=== PATIENT | female | born 1990 | race African-American/Black ===

== ENCOUNTER 2017-04-27 14:55 | Emergency (ER) | payer SELFPAY ==
[~2017-04-27 14:55] MED LIST: ALPR0.25 PO
--- NOTE | 2017-04-27 15:24 | ED.ADGEN ---
Past History Past Medical History: Anxiety, Bipolar, Bronchitis Additional Past Medical Histor: adjustment disorder Past Surgical History: No Surgical History Smoking: Cigarettes, Quit Less Than 1 Year Alcohol Use: None Drug Use: None Adult General Chief Complaint Chief Complaint Anxiety HPI HPI Patient is a 26 year old female who presents with anxiety that started today patient's shaking and stuttering this is happening many times in the past she is no longer taking any of her psychiatric medications. She is a very poor follow-up from a mental health standpoint. Denies any suicidal or homicidal ideation denies any auditory or visual hallucinations. No obvious triggers that exacerbated this according to the patient but she reports that she was looking at her medical bills from the previous visit to the emergency department back in October 2016. So as as response she called 911 to the ER.. Patient reports that she's been diagnosed with bipolar, anxiety/ panic disorder and adjustment disorder but she "disagrees with those diagnoses". Review of Systems Review of Systems Constitutional: Denies fever or chills [] Eyes: Denies change in visual acuity, redness, or eye pain [] HENT: Denies nasal congestion or sore throat [] Respiratory: Denies cough or shortness of breath [] Cardiovascular: No additional information not addressed in HPI [] GI: Denies abdominal pain, nausea, vomiting, bloody stools or diarrhea [] : Denies dysuria or hematuria [] Musculoskeletal: Denies back pain or joint pain [] Integument: Denies rash or skin lesions [] Neurologic: Denies headache, focal weakness or sensory changes [] Endocrine: Denies polyuria or polydipsia [] Current Medications Current Medications Current Medications Medications (Trade) Dose Ordered Sig/Radha Start Time Stop Time Status Last Admin Dose Admin Lorazepam (Ativan) 1 mg 1X ONCE 04/27/17 15:30 04/27/17 15:31 DC 04/27/17 15:21 1 MG Allergies Allergies Allergies Coded Allergies Type Severity Reaction Last Updated Verified amoxicillin Allergy Severe sob 07/30/16 Yes Physical Exam Physical Exam Constitutional: Well developed, well nourished, no acute distress, non-toxic appearance. [] HENT: Normocephalic, atraumatic, bilateral external ears normal, oropharynx moist, no oral exudates, nose normal. [] Eyes: PERRLA, EOMI, conjunctiva normal, no discharge. [] Neck: Normal range of motion, no tenderness, supple, no stridor. [] Cardiovascular:Heart rate regular rhythm, no murmur [] Lungs & Thorax: Bilateral breath sounds clear to auscultation [] Abdomen: Bowel sounds normal, soft, no tenderness, no masses, no pulsatile masses. [] Skin: Warm, dry, no erythema, no rash. [] Back: No tenderness, no CVA tenderness. [] Extremities: No tenderness, no cyanosis, no clubbing, ROM intact, no edema. [] Neurologic: Alert and oriented X 3, normal motor function, normal sensory function, no focal deficits noted. [] Psychologic: Affect flat, judgement normal, mood anxious. Denies SI or HI or hallucinations [] EKG EKG [] Radiology/Procedures Radiology/Procedures [] Course & Med Decision Making Course & Med Decision Making Pertinent Labs and Imaging studies reviewed. (See chart for details) Patient responded well to IV Ativan and recommended outpatient follow-up. [] Final Impression Final Impression Anxiety and panic disorder [] Problems: Dragon Disclaimer Dragon Disclaimer This electronic medical record was generated, in whole or in part, using a voice recognition dictation system. IVETT GARCIA MD Apr 27, 2017 15:24
[2017-04-27] MEDS ORDERED: LORazepam 2 MG/ML VIAL IV ONE (15:30)
[2017-04-27 16:40] VITALS: BP 143/84
== END 2017-04-27 16:40 | disposition home or self-care (01) ==
LOC: ER 14:55
DX: F41.0 Panic disorder [episodic paroxysmal anxiety] (principal); F31.9 Bipolar disorder, unspecified; F17.210 Nicotine dependence, cigarettes, uncomplicated; Z88.1 Allergy status to other antibiotic agents
CPT/HCPCS: 96374; 99284; J2060

== ENCOUNTER → 2018-01-27 | Outpatient (CLI) | payer OTHER ==
--- NOTE | 2018-01-27 16:27 | RAD ---
Obstetrical ultrasound, 01/27/2018: History: Uterine size/date discrepancy There is a single intrauterine fetus in a cephalic orientation. The biparietal diameter measures 8.3 cm compatible with a gestational age of 33-34 weeks. This corresponds well with the other measurements yielding an average gestational age of 33 weeks and 4 days and a sonographic EDC of 03/13/2018. No previous studies are available at this time for correlative purposes. Normal activity and heart motion were seen. A four-chamber heart is evident with a heart rate of 132 bpm. The head to abdominal circumference ratio is within normal limits. The weight was estimated at 4 pounds and 13 ounces +/- 11 ounces. Fluid is evident in the bladder and stomach. The kidneys are unremarkable. Due to the position there was limited visualization of the spine. No specific abnormality is detected. The amniotic fluid volume appears to be within normal limits with the ROSI calculated at 16. The placenta lies laterally on the right with extension anteriorly and posteriorly. It is considered to be grade 2. No placenta previa is seen. The cervical length is 4.4 cm. IMPRESSION: Single viable intrauterine fetus of 33-34 weeks gestational age as described above.
== END | disposition home or self-care (01) ==
LOC: US 13:17
PROVIDERS: ATTEND Obstetrics & Gynecology
DX: Z34.93 Encounter for supervision of normal pregnancy, unspecified, third trimester (principal); Z3A.34 34 weeks gestation of pregnancy
CPT/HCPCS: 76805

== ENCOUNTER 2018-03-21 11:00 | Emergency (ER) | payer OTHER ==
[~2018-03-21] VITALS: Ht 167.6 cm; Wt 123.0 kg
[2018-03-21] MEDS ORDERED: IV NORMAL SALINE 1,000ML 1,000 ML IV SCH (11:25)
[2018-03-21] MEDS ORDERED: 0.9 % SODIUM CHLORIDE 10 ML DISP.SYRIN. IV PRN (11:30)
[2018-03-21 11:38] LABS: BASO % 0 % (0-3); EOS % 0 % (0-3); HEMATOCRIT 32.2 % (36.0-47.0); LYMPH # 1.2 x10^3/uL (1.0-4.8); LYMPH % 11 % (24-48); MEAN CORPUSCULAR HEMOGLOBIN 31 pg (25-35); MEAN CORPUSCULAR HGB CONC 34 g/dL (31-37); MEAN CORPUSCULAR VOLUME 90 fL (79-100); MONO # 0.3 x10^3/uL (0.0-1.1); MONO % 3 % (0-9); NEUT # 9.1 x10^3uL (1.8-7.7); NEUT % 85 % (31-73); PLATELET COUNT 318 x10^3/uL (140-400); RED BLOOD COUNT 3.59 x10^6/uL (3.50-5.40); RED CELL DISTRIBUTION WIDTH 13.8 % (11.5-14.5); WHITE BLOOD COUNT 10.7 x10^3/uL (4.0-11.0)
[2018-03-21] MEDS ORDERED: ONDANSETRON PF 4 MG/2 ML VIAL. IV ONE (11:45)
[2018-03-21] MEDS ORDERED: KETOROLAC 30 MG/ML VIAL. IV ONE (11:45)
[2018-03-21 11:48] LABS: BILIRUBIN,URINE NEG (NEG); CLARITY,URINE HAZY; COLOR,URINE YELLOW; GLUCOSE,URINE NEG (NEG); NITRITE,URINE NEG (NEG); UROBILINOGEN,URINE 0.2 mg/dL (0.2 mg/dL); WBC,URINE OCC /HPF (0-4)
[2018-03-21 11:49] LABS: AMORPHOUS SEDIMENT,UR PRESENT /HPF; BACTERIA,URINE FEW /HPF (0-FEW); SQUAMOUS EPITHELIAL CELL,UR FEW /LPF
[2018-03-21 11:54] LABS: ALBUMIN 3.3 g/dL (3.4-5.0); ALBUMIN/GLOBULIN RATIO 0.8 (1.0-1.7); CALCIUM 9.2 mg/dL (8.5-10.1); CREATININE 0.9 mg/dL (0.6-1.0); GFR 89.6; POTASSIUM 3.5 mmol/L (3.5-5.1); TOTAL BILIRUBIN 0.2 mg/dL (0.2-1.0); TOTAL PROTEIN 7.5 g/dL (6.4-8.2)
[2018-03-21 11:54] LABS: AMPHETAMINE/METHAMPHETAMINE NEG (NEG); BARBITURATES NEG (NEG); BENZODIAZEPINES POS (NEG); CANNABINOIDS POS (NEG); COCAINE NEG (NEG); METHADONE NEG (NEG); OPIATES POS (NEG); PHENCYCLIDINE NEG (NEG)
[2018-03-21] MEDS ORDERED: IOHEXOL 300 MG/ML 75 ML VIAL. IV ONE (12:10)
--- NOTE | 2018-03-21 12:18 | RAD ---
PQRS Compliance Statement: One or more of the following individualized dose reduction techniques were utilized for this examination: 1. Automated exposure control 2. Adjustment of the mA and/or kV according to patient size 3. Use of iterative reconstruction technique CT abdomen/pelvis with contrast 03/21/2018 11:46 AM INDICATION: Abdominal pain. History of and tubal ligation 03/09/2018. History of prior hernia repair. COMPARISON: None available TECHNIQUE: Multiple axial CT images of the abdomen and pelvis were obtained after the intravenous administration of 75 mL Omnipaque 300. Coronal and sagittal reformats are provided. FINDINGS: Visualized portions of the lung bases are clear. Heart size is within normal limits. No suspicious hepatic masses are identified. Liver is homogeneous in enhancement. Spleen, bilateral adrenal glands, and pancreas are normal in appearance. There is gallbladder wall thickening and suspected wall edema. The abdominal aorta is normal in course and caliber. There are no pathologically enlarged lymph nodes in the abdomen and pelvis. There is no abdominal free fluid. There is no free intraperitoneal air. Cystic density is identified in the left rectus muscle measuring 3.8 x 2.3 cm, suggestive of a postoperative seroma. Postgravid uterus is noted with trace free fluid in the pelvis. Fluid is noted within the endometrium. Urinary bladder is within normal limits given degree of distention. Postoperative changes from ventral abdominal hernia repair are noted. No definite recurrent hernia is identified. The kidneys enhance symmetrically. There is no suspicious renal mass. There is no hydronephrosis. There are no suspected calculi within the kidneys, ureters or urinary bladder. Small and large bowel are normal in caliber. There is no evidence for bowel obstruction. There are no pericolonic inflammatory changes. Appendix is not definitively visualized and likely surgically absent. Suture material is noted along the cecum. IMPRESSION: 1. Status post with tubal ligation with fluid noted within the endometrium. If there is persistent clinical concern, further evaluation with pelvic ultrasound may be of benefit. 2. Gallbladder wall thickening and edema without definite pericholecystic inflammatory changes. Further evaluation with right upper quadrant abdominal ultrasound may be of benefit. 3. 3.8 x 2.3 cm suspected postoperative seroma or liquefied hematoma in the left abdominal rectus musculature. Electronically signed by: Adriana Mancini MD (03/21/2018 12:15 PM) [id number]
--- NOTE | 2018-03-21 12:36 | PHYS DOC ---
Past History Past Medical History: Anxiety Additional Past Medical Histor: adjustment disorder Past Surgical History: , Tubal ligation Smoking: Cigarettes, Quit Less Than 1 Year Alcohol Use: None Drug Use: None Adult General Chief Complaint Chief Complaint: ABDOMINAL PAIN [facility] HPI 27-year-old female patient with history of on March 09 brought in by EMS because of sudden onset of abdominal pain. Patient state he had an uneventful with a good bowel movement yesterday. Patient complaining of sudden onset of epigastric sharp and crampy pain with radiation to chest and upper back, associated with 1 episode of vomiting and rated her pain 10 over 10. Patient denies chest pain, shortness of breath, focal neuro deficit, normal vaginal bleeding or discharge, urinary symptom, fever and chills. Patient was very anxious at arrival to ER. Review of Systems Review of Systems Constitutional: Denies fever or chills [] Eyes: Denies change in visual acuity, redness, or eye pain [] HENT: Denies nasal congestion or sore throat [] Respiratory: Denies cough or shortness of breath [] Cardiovascular: No additional information not addressed in HPI [] GI: Reports abdominal pain, nausea, vomiting, denies constipation, bloody stools or diarrhea [] : Denies dysuria or hematuria [] Musculoskeletal: Denies back pain or joint pain [] Integument: Denies rash or skin lesions [] Neurologic: Denies headache, focal weakness or sensory changes [] Endocrine: Denies polyuria or polydipsia [] All other systems were reviewed and found to be within normal limits, except as documented in this note. Current Medications Current Medications Current Medications Medications (Trade) Dose Ordered Sig/Radha Start Time Stop Time Status Last Admin Dose Admin Iohexol (Omnipaque 300 Mg/ml) 75 ml 1X ONCE 03/21/18 12:10 03/21/18 12:11 DC 03/21/18 12:17 75 ML Ketorolac Tromethamine (Toradol) 30 mg 1X ONCE 03/21/18 11:45 03/21/18 11:46 DC 03/21/18 11:40 30 MG Ondansetron HCl (Zofran) 4 mg 1X ONCE 03/21/18 11:45 03/21/18 11:46 DC 03/21/18 11:43 4 MG Sodium Chloride (Normal Saline Flush) 10 ml QSHIFT PRN 03/21/18 11:30 Allergies Allergies Allergies Coded Allergies Type Severity Reaction Last Updated Verified amoxicillin Allergy Severe sob 07/30/16 Yes Physical Exam Physical Exam Constitutional: Well developed, well nourished, moderate distress, non-toxic appearance, very anxious. [] HENT: Normocephalic, atraumatic, oropharynx moist, no oral exudates, nose normal. [] Eyes: PERRLA, EOMI, conjunctiva normal, no discharge. [] Neck: Normal range of motion, no tenderness, supple, no stridor. [] Cardiovascular: Tachycardia, no murmur [] Lungs & Thorax: Bilateral breath sounds clear to auscultation [] Abdomen: Bowel sounds normal, soft, no tenderness, no masses, no pulsatile masses, clean transverse lower abdominal surgical wound. [] Skin: Warm, dry, no erythema, no rash. [] Back: No tenderness, no CVA tenderness. [] Extremities: No tenderness, no cyanosis, no clubbing, ROM intact, no edema. [] Neurologic: Alert and oriented X 3, normal motor function, normal sensory function, no focal deficits noted. [] Psychologic: Anxious, judgement normal, mood normal. [] Current Patient Data Vital Signs Vital Signs Date Time Temp Pulse Resp B/P (MAP) Pulse Ox O2 Delivery O2 Flow Rate FiO2 03/21/18 12:09 53 18 183/78 (113) 99 Room Air 03/21/18 11:01 98.2 Lab Results Laboratory Tests Test 03/21/18 11:10 03/21/18 11:20 Urine Collection Type Unknown Urine Color Yellow Urine Clarity Hazy Urine pH 8.0 Urine Specific Bellamy 1.020 Urine Protein Trace (NEG-TRACE) Urine Glucose (UA) Neg mg/dL (NEG) Urine Ketones (Stick) Neg mg/dL (NEG) Urine Blood Small (NEG) Urine Nitrite Neg (NEG) Urine Bilirubin Neg (NEG) Urine Urobilinogen Dipstick 0.2 mg/dL (0.2 mg/dL) Urine Leukocyte Esterase Neg (NEG) Urine RBC 3-5 /HPF (0-2) Urine WBC Occ /HPF (0-4) Urine Squamous Epithelial Cells Few /LPF Urine Amorphous Sediment Present /HPF Urine Bacteria Few /HPF (0-FEW) Urine Opiates Screen Pos (NEG) Urine Methadone Screen Neg (NEG) Urine Barbiturates Neg (NEG) Urine Phencyclidine Screen Neg (NEG) Urine Amphetamine/Methamphetamine Neg (NEG) Urine Benzodiazepines Screen Pos (NEG) Urine Cocaine Screen Neg (NEG) Urine Cannabinoids Screen Pos (NEG) Urine Ethyl Alcohol Neg (NEG) White Blood Count 10.7 x10^3/uL (4.0-11.0) Red Blood Count 3.59 x10^6/uL (3.50-5.40) Hemoglobin 11.0 g/dL (12.0-15.5) L Hematocrit 32.2 % (36.0-47.0) L Mean Corpuscular Volume 90 fL (79-100) Mean Corpuscular Hemoglobin 31 pg (25-35) Mean Corpuscular Hemoglobin Concent 34 g/dL (31-37) Red Cell Distribution Width 13.8 % (11.5-14.5) Platelet Count 318 x10^3/uL (140-400) Neutrophils (%) (Auto) 85 % (31-73) H Lymphocytes (%) (Auto) 11 % (24-48) L Monocytes (%) (Auto) 3 % (0-9) Eosinophils (%) (Auto) 0 % (0-3) Basophils (%) (Auto) 0 % (0-3) Neutrophils # (Auto) 9.1 x10^3uL (1.8-7.7) H Lymphocytes # (Auto) 1.2 x10^3/uL (1.0-4.8) Monocytes # (Auto) 0.3 x10^3/uL (0.0-1.1) Eosinophils # (Auto) 0.0 x10^3/uL (0.0-0.7) Basophils # (Auto) 0.0 x10^3/uL (0.0-0.2) Sodium Level 142 mmol/L (136-145) Potassium Level 3.5 mmol/L (3.5-5.1) Chloride Level 104 mmol/L (98-107) Carbon Dioxide Level 26 mmol/L (21-32) Anion Gap 12 (6-14) Blood Urea Nitrogen 13 mg/dL (7-20) Creatinine 0.9 mg/dL (0.6-1.0) Estimated GFR (Cockcroft-Gault) 89.6 BUN/Creatinine Ratio 14 (6-20) Glucose Level 116 mg/dL (70-99) H Calcium Level 9.2 mg/dL (8.5-10.1) Total Bilirubin 0.2 mg/dL (0.2-1.0) Aspartate Amino Transferase (AST) 17 U/L (15-37) Alanine Aminotransferase (ALT) 20 U/L (14-59) Alkaline Phosphatase 54 U/L (46-116) Total Protein 7.5 g/dL (6.4-8.2) Albumin 3.3 g/dL (3.4-5.0) L Albumin/Globulin Ratio 0.8 (1.0-1.7) L Lipase 74 U/L (73-393) EKG EKG [] Radiology/Procedures Radiology/Procedures [[address] [address] IMAGING REPORT Signed PATIENT: VISH TALBOT ACCOUNT: [id number] : 1990 LOCATION: ER AGE: 27 SEX: F EXAM STATUS: REG ER ORD. PHYSICIAN: ELA PASCUAL MD REASON: abdominal pain after PROCEDURE: CT ABD PELV W/ IV CONTRST ONLY PQRS Compliance Statement: One or more of the following individualized dose reduction techniques were utilized for this examination: 1. Automated exposure control 2. Adjustment of the mA and/or kV according to patient size 3. Use of iterative reconstruction technique CT abdomen/pelvis with contrast 03/21/2018 11:46 AM INDICATION: Abdominal pain. History of and tubal ligation 03/09/2018. History of prior hernia repair. COMPARISON: None available TECHNIQUE: Multiple axial CT images of the abdomen and pelvis were obtained after the intravenous administration of 75 mL Omnipaque 300. Coronal and sagittal reformats are provided. FINDINGS: Visualized portions of the lung bases are clear. Heart size is within normal limits. No suspicious hepatic masses are identified. Liver is homogeneous in enhancement. Spleen, bilateral adrenal glands, and pancreas are normal in appearance. There is gallbladder wall thickening and suspected wall edema. The abdominal aorta is normal in course and caliber. There are no pathologically enlarged lymph nodes in the abdomen and pelvis. There is no abdominal free fluid. There is no free intraperitoneal air. Cystic density is identified in the left rectus muscle measuring 3.8 x 2.3 cm, suggestive of a postoperative seroma. Postgravid uterus is noted with trace free fluid in the pelvis. Fluid is noted within the endometrium. Urinary bladder is within normal limits given degree of distention. Postoperative changes from ventral abdominal hernia repair are noted. No definite recurrent hernia is identified. The kidneys enhance symmetrically. There is no suspicious renal mass. There is no hydronephrosis. There are no suspected calculi within the kidneys, ureters or urinary bladder. Small and large bowel are normal in caliber. There is no evidence for bowel obstruction. There are no pericolonic inflammatory changes. Appendix is not definitively visualized and likely surgically absent. Suture material is noted along the cecum. IMPRESSION: 1. Status post with tubal ligation with fluid noted within the endometrium. If there is persistent clinical concern, further evaluation with pelvic ultrasound may be of benefit. 2. Gallbladder wall thickening and edema without definite pericholecystic inflammatory changes. Further evaluation with right upper quadrant abdominal ultrasound may be of benefit. 3. 3.8 x 2.3 cm suspected postoperative seroma or liquefied hematoma in the left abdominal rectus musculature. Electronically signed by: Bhargavi Mancini MD (03/21/2018 12:15 PM) [id number] DICTATED AND SIGNED BY: BHARGAVI MANCINI MD DATE: 03/21/18 1211 CC: ELA PASCUAL MD; PCP,NO ~ ] Course & Med Decision Making Course & Med Decision Making Pertinent Labs and Imaging studies reviewed. (See chart for details) Evolution of patient in ER showed 27-year-old male patient complaining of pain in the epigastric area and nausea and vomiting with history of recent C- section. Patient had unremarkable physical exam for anxiety and epigastric guarding. informed about the patient condition and agreed with plan of discharging home. Patient had gallstone and instructed to follow with on-call surgeon. CT showed abdominal wall seroma. Patient instructed to apply moist heat and follow with her [employer]. Dragon Disclaimer Dragon Disclaimer This electronic medical record was generated, in whole or in part, using a voice recognition dictation system. Departure Departure: Impression: Primary Impression: Cholelithiasis Additional Impressions: Biliary colic Panic attack Seroma after procedure Tobacco abuse Tobacco abuse counseling Disposition: HOME, SELF-CARE (At 1530) Condition: IMPROVED Referrals: [facility] (PCP) Patient Instructions: Cholecystitis, Smoking Cessation Additional Instructions: Drink plenty of liquids Follow-up with your primary care physician in 2-3 days for referral to surgeon Return to ER if not getting better Scripts Naproxen (NAPROSYN) 500 Mg Tablet 1 TAB PO BID, #20 TAB 1 Refill Prov: ELA PASCUAL MD 03/21/18 Ranitidine Hcl (ZANTAC) 150 Mg Tablet 1 TAB PO BID, #20 TAB 3 Refills Prov: ELA PASCUAL MD 03/21/18 Critical Care Time Critical care time was [80] minutes exclusive of procedures. Problem Qualifiers ELA PASCUAL MD March 21, 2018 12:36
[2018-03-21] MEDS ORDERED: FAMOTIDINE 20 MG/2 ML VIAL IVP ONE (14:00)
--- NOTE | 2018-03-21 15:03 | RAD ---
EXAM: Abdomen sonogram. HISTORY: Pain. TECHNIQUE: Sonographic imaging of the abdomen was performed. COMPARISON: CT obtained on the same date. FINDINGS: The liver is mildly enlarged. No focal hepatic lesion is seen. There is a large stone within the gallbladder measuring 2.5 cm. The gallbladder wall is thickened. The common bile duct is normal in caliber. The right kidney is unremarkable. The pancreas is obscured due to bowel gas. The inferior vena cava is patent. The aorta is not assessed. IMPRESSION: 1. Cholelithiasis. There is gallbladder wall thickening which may be due to gallbladder contraction. There is no clear additional secondary findings to suggest cholecystitis. 2. Mild hepatomegaly. Electronically signed by: Dinah Smith MD (03/21/2018 3:00 PM) [id number]
[2018-03-21] MEDS ORDERED: NAPR-683 PO (15:35)
[2018-03-21] MEDS ORDERED: RANI150T21 PO (15:35)
[2018-03-21 16:00] VITALS: BP 178/81
== END 2018-03-21 16:09 | disposition home or self-care (01) ==
LOC: ER 11:00
DX: O99.63 Diseases of the digestive system complicating the puerperium (principal); K80.70 Calculus of gallbladder and bile duct without cholecystitis without obstruction; F41.0 Panic disorder [episodic paroxysmal anxiety]; K91.873 Postprocedural seroma of a digestive system organ or structure following other procedure; Z87.891 Personal history of nicotine dependence; Z98.890 Other specified postprocedural states; Z98.51 Tubal ligation status; Z71.6 Tobacco abuse counseling; Z88.1 Allergy status to other antibiotic agents
CPT/HCPCS: 36415; 74177; 76705; 80053; 80307; 81001; 83690; 85025; 96361; 96374; 96375; 99285; J1885; J2405; Q9967; S0028; G0479; J7030